=== PATIENT | female | born 1985 | race Caucasian/White ===

== ENCOUNTER 2017-04-21 11:29 | Emergency (ER) | payer OTHER | END 2017-04-21 15:22 | disposition home or self-care (01) | LOC: ER 11:29 | DX: R07.89 Other chest pain (principal); N39.0 Urinary tract infection, site not specified; F17.210 Nicotine dependence, cigarettes, uncomplicated; Z79.899 Other long term (current) drug therapy | CPT/HCPCS: 36415; 96365; J0696 ==